=== PATIENT | female | born 1985 | race Caucasian/White ===

== ENCOUNTER 2021-04-30 17:59 | Emergency (ER) | payer BC ==
[~2021-04-30] VITALS: Ht 170.2 cm; Wt 77.6 kg
[2021-04-30 20:38] LABS: HEMATOCRIT 36.9 % (37.0-47.0); HEMOGLOBIN 12.2 gm/dL (12.0-15.0); MCH 30.2 pg (26.0-34.0); MCV 91.4 fL (80.0-100.0); MPV 8.9 fl. (7.2-11.1); RBC 4.04 mil/uL (4.20-5.00); RDW-CV 13.7 % (10.5-14.5); WBC 6.4 thou/uL (4.0-11.0)
[2021-04-30 20:46] LABS: CALCIUM 8.9 mg/dL (8.5-10.1); CREATININE 0.9 mg/dL (0.6-1.3)
[2021-04-30 20:51] LABS: ALBUMIN 3.6 g/dL (3.4-5.0); TOTAL BILIRUBIN 0.2 mg/dL (<0.1-1.0); TOTAL PROTEIN 7.1 g/dL (6.4-8.2)
[2021-04-30] MEDS ORDERED: DIAZEPAM 5 MG5 M1 PO (22:56)
[2021-04-30] MEDS ORDERED: ULTRAM 50MG TAB50 MG PO (22:56)
[2021-04-30 23:02] VITALS: BP 108/66
== END 2021-04-30 23:04 | disposition home or self-care (01) ==
LOC: M.ERS 17:59
PROVIDERS: Personal Emergency Response Attendant
DX: R51.9 Headache, unspecified (principal); Z20.822 Contact with and (suspected) exposure to COVID-19; Z98.51 Tubal ligation status; Z90.89 Acquired absence of other organs; Z98.890 Other specified postprocedural states